=== PATIENT | male | born 1965 | race African-American/Black ===

== ENCOUNTER 2018-10-29 14:49 | Emergency (ER) | payer MEDICAID, OTHER ==
[~2018-10-29] VITALS: Ht 170.2 cm; Wt 97.0 kg
[~2018-10-29 14:49] MED LIST: ATOR40TA70 PO; MINO2.5T19 PO; Metoprolol Tartrate PO; Nifedipine PO; TAMS0.4C31 PO
[2018-10-29 15:17] VITALS: BP 162/78
[2018-10-29] MEDS ORDERED: BACITRACIN ZINC OINT UDPKT TOP ONE (15:45)
== END 2018-10-29 16:16 | disposition home or self-care (01) ==
LOC: ER 14:49
DX: S91.202A Unspecified open wound of left great toe with damage to nail, initial encounter (principal); X58.XXXA Exposure to other specified factors, initial encounter; Y93.F1 Activity, caregiving, bathing; Y92.9 Unspecified place or not applicable; E11.9 Type 2 diabetes mellitus without complications; I12.0 Hypertensive chronic kidney disease with stage 5 chronic kidney disease or end stage renal disease; N18.6 End stage renal disease; Z99.2 Dependence on renal dialysis
CPT/HCPCS: 99282

== ENCOUNTER 2021-10-09 08:26 | Emergency (ER) | payer MEDICARE, MEDICAID ==
[~2021-10-09] VITALS: Ht 177.8 cm; Wt 73.0 kg
[~2021-10-09 08:26] MED LIST changes: +CABE0.5T2 MT; +CLON-457 MT; +CLON0.1T PO; +COLC0.6C MT; +DORZ10DR12 LEFTEYE; +FAMO20TA8 MT; +FOLI-43 PO; +FOLI0.8T23 MT; +HYDR-4134 MT; +LOSA50TA41 MT; -MINO2.5T19 PO; -Metoprolol Tartrate PO; +NIFE90TA43 MT; -Nifedipine PO; +SEVE800T8 MT
[2021-10-09 09:53] LABS: EOSINOPHILS % 3.8 % (0.0-5.0); HEMATOCRIT. 34.2 % (42.0-52.0); HEMOGLOBIN. 11.6 g/dL (14.0-18.0); LYMPHOCYTES % 15.7 % (20.0-50.0); MEAN CORPUSCULAR HEMOGLOBIN 32.6 pg (28.0-32.0); MEAN CORPUSCULAR VOLUME 95.8 fL (80.0-94.0); MEAN PLATELET VOLUME 7.5 fl (7.4-10.4); MONOCYTES % 8.4 % (2.0-8.0); NEUTROPHILS % 71.1 % (40.0-76.0); PLATELET 189 x1000/uL (130-400); RED BLOOD CELL COUNT 3.57 mill/uL (4.7-6.1); RED CELL DISTRIBUTION WIDTH 14.1 % (11.6-14.6)
[2021-10-09 10:02] LABS: CHLORIDE 94 mEq/L (98-107)
[2021-10-09] MEDS ORDERED: ASPIRIN 81MG TABLET PO ONE (11:15)
[2021-10-09] MEDS ORDERED: NITROGLYCERIN OINT 1GM/INCH UDPKT TD ONE (11:15)
[2021-10-09] MEDS ORDERED: ACETAMINOPHEN 325MG TABLET PO PRN (14:15)
[2021-10-09] MEDS ORDERED: GUAIFENESIN 200MG/10ML SUGAR FREE UDC PO PRN (14:15)
[2021-10-09] MEDS ORDERED: ONDANSETRON HCL 4MG/2ML INJ IV PRN (14:15)
[2021-10-09] MEDS ORDERED: MAGNESIUM/ALUMINUM HYDROXIDE/SIMETHICONE 30ML UDC PO PRN (14:15)
[2021-10-09] MEDS ORDERED: DIPHENHYDRAMINE 50MG/ML VIAL IV PRN (14:15)
[2021-10-09] MEDS ORDERED: HYDROCODONE/ACETAMINOPHEN 5/325MG TABLET PO PRN (14:15)
[2021-10-09] MEDS ORDERED: TRAMADOL 50MG TABLET PO PRN (14:15)
[2021-10-09] MEDS ORDERED: DOCUSATE SODIUM 100MG CAPSULE PO PRN (14:15)
[2021-10-09 14:29] VITALS: BP 173/78
[2021-10-09] MEDS ORDERED: NALOXONE HCL 0.4MG/ML VIAL IV PRN (14:30)
[2021-10-09] MEDS ORDERED: AMLODIPINE 10MG TABLET PO SCH (15:00)
[2021-10-10] MEDS ORDERED: ASPIRIN 81MG EC TABLET PO SCH (09:00)
== END 2021-10-09 14:35 | disposition left against medical advice (07) ==
LOC: ER 08:26 → CANBEDREQ 14:36
DX: E11.22 Type 2 diabetes mellitus with diabetic chronic kidney disease (principal); I12.9 Hypertensive chronic kidney disease with stage 1 through stage 4 chronic kidney disease, or unspecified chronic kidney disease; N18.9 Chronic kidney disease, unspecified; Z79.899 Other long term (current) drug therapy; Z98.890 Other specified postprocedural states
CPT/HCPCS: 36415; 71045; 80053; 84484; 85025; 93005; 99285